=== PATIENT | male | born 1975 | race Caucasian/White ===

== ENCOUNTER 2021-02-27 14:48 | Inpatient (IN) | payer SELFPAY ==
[2021-02-27 15:44] VITALS: BMI 23.3
[2021-02-27 22:00] VITALS: RESP 18
[2021-02-28] MEDS: acetaminophen 325 mg Tablet 650 MG PO ×2 (05:25→15:11)
[2021-02-28 06:00] VITALS: BP 142/97; PULSE 81; RESP 18; O2SAT 96
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
--- NOTE | 2021-02-28 12:23 | NPU.GN ---
[facility] Group Topic:Positive Thinking / Positive Affirmations General Mood of Group: David did attend group and participated. Seemed in a good mood. He was social with others.
[2021-02-28 13:56] VITALS: BP 141/87; PULSE 73; RESP 16; TEMP 36.4; O2SAT 96
[2021-02-28] MEDS: hyDROXYzine 25 mg Capsule 50 MG PO (15:12)
[2021-02-28] MEDS: nicotine 21 mg Patch 1 PATCH TRANSDERMA (15:32)
[2021-02-28 20:35] VITALS: BP 155/106; PULSE 73; RESP 18; TEMP 36.8; O2SAT 97
[2021-02-28] MEDS: trazodone 50 mg Tablet PO (20:36)
[2021-03-01 06:00] VITALS: BP 128/95; PULSE 103; RESP 18; TEMP 36.8; O2SAT 95
--- NOTE | 2021-03-01 10:31 | NPU.GN ---
[facility] Topic: Good Secrets Vs. Bad Secrets Psycho Therapy General Mood of Group: David did attend and participate in group today.
[2021-03-01] MEDS: nicotine 21 mg Patch 1 PATCH TRANSDERMA (12:39)
[2021-03-01 14:00] VITALS: BP 147/95; PULSE 78; RESP 16; TEMP 36.4; O2SAT 98
[2021-03-01] MEDS: lanolin oint 7 gm 1 APPLIC TOPICAL (18:23)
--- NOTE | 2021-03-01 18:44 | W.PM.NPUPNS ---
Subjective NPU Subjective: Interval history: David and I had a extensive conversation about his vision for his future and his addiction and his relationship with his children. He spoke significantly about having knowledge of what the right thing to do is but struggling with his choices and behaviors. We discussed the dangers of addiction and that all he takes is 1 day and 1 bad choice in her life can be changed irreparably forever. He revealed at that time that in this last week or so he may have gotten some charges stemming from his behaviors and is waiting to hear that he has not talked to his family about it. We discussed the fact that we had not supporting him going to his daughter's ceremony tomorrow secondary to wanting him to be able to do what he says is his daughters 1 wish from him and that is to be functional and available to walk her down the aisle. Mental Status Exam MSE Comments: This is a well-nourished, well-developed, white male, with adequate dress, grooming, and eye contact. No abnormal movements. Cooperative with exam in no acute distress. Speech was normal rate and volume. Mood described as good; affect euthymic. Thought process, organized. Thought content: patient denied any suicidal or homicidal ideation, there were no delusions reported or noted, patient denied any auditory or visual hallucinations. Attention, concentration, and memory appear intact but were not formally tested. He is alert and oriented times three. Insight and judgment are limited, but improving, impulse control impaired. Vitals/I&O/Wt Last Vital Signs Temp 98.2 F 03/01/21 21:20 Pulse 88 03/01/21 21:20 Resp 18 03/01/21 21:20 BP 150/102 03/01/21 21:20 Pulse Ox 97 03/01/21 21:20 A&P Assessment and plan (1) ADHD: Status: Acute Additional A&P Information (1) Psychosis: (2) Methamphetamine abuse: Additional A&P Information This is a 45-year-old, white male, with polysubstance abuse, methamphetamine use disorder, severe, cocaine use disorder, severe, rule out bipolar disorder, unspecified, who presents on a 96-hour hold secondary to significant psychosis, likely drug-induced, with history of recent TBI. RECOMMENDATION AND PLAN: 1. Continue current medication. 2. Encourage individual, group, and milieu therapy. 3. Continue q-15 minute checks for safety. 4. Encourage sober living treatment after discharge, at the highest level of care, to which he is willing to commit. Involuntary Hold Information 96 Hour Hold: 96 Hour Involuntary Admission: No Attestations NPU Medical Necessity Statement*: Inpatient hospitalization is medically necessary and the clinically appropriate intervention, at this time. We will monitor medications and make changes as indicated. Patient will be in the hospital for over two midnights. Likely length of stay is 2-4 days. Coding Level of Care Code Acute Extraction Supervisor for Rebekah Fwd Diagnoses ADHD F90.9
[2021-03-01] MEDS: trazodone 50 mg Tablet PO (20:24)
[2021-03-01 21:20] VITALS: BP 150/102; PULSE 88; RESP 18; TEMP 36.8; O2SAT 97
[2021-03-01] MEDS: hyDROXYzine 25 mg Capsule 50 MG PO (23:48)
[2021-03-02 06:00] VITALS: BP 132/91; PULSE 95; RESP 18; TEMP 36.6; O2SAT 96
[2021-03-02] MEDS: acetaminophen 325 mg Tablet 650 MG PO ×2 (09:02→17:14)
[2021-03-02] MEDS: nicotine 21 mg Patch 1 PATCH TRANSDERMA (09:03)
[2021-03-02 14:00] VITALS: BP 132/94; PULSE 69; RESP 18; TEMP 36.2; O2SAT 96
--- NOTE | 2021-03-02 15:39 | W.PM.NPUPNS ---
Subjective NPU Subjective: Interval history: Patient presents today reporting that he is aware of his situation and the fact that he needs to really work on his recovery in his relationships and his choices. We discussed the diagnosis of ADHD and the fact that the likely only stimulant that this health science writer would use with him would be Vyvanse given its reduced abuse potential as a prodrug. But we discussed the risk-benefit alternatives of starting Strattera 40 mg p.o. every morning with meals and he understood and agreed to proceed as is documented in this note. Mental Status Exam MSE Comments: This is a well-nourished, well-developed, white male, with adequate dress, grooming, and eye contact. No abnormal movements. Cooperative with exam in no acute distress. Speech was normal rate and volume. Mood described as good; affect euthymic. Thought process, organized. Thought content: patient denied any suicidal or homicidal ideation, there were no delusions reported or noted, patient denied any auditory or visual hallucinations. Attention, concentration, and memory appear intact but were not formally tested. He is alert and oriented times three. Insight and judgment are limited, but improving, impulse control impaired. Vitals/I&O/Wt Last Vital Signs Temp 97.1 F L 03/02/21 14:00 Pulse 69 03/02/21 14:00 Resp 18 03/02/21 14:00 BP 132/94 03/02/21 14:00 Pulse Ox 96 03/02/21 14:00 A&P Additional A&P Information (1) ADHD: Additional A&P Information (1) Psychosis: (2) Methamphetamine abuse: Additional A&P Information This is a 45-year-old, white male, with polysubstance abuse, methamphetamine use disorder, severe, cocaine use disorder, severe, rule out bipolar disorder, unspecified, who presents on a 96-hour hold secondary to significant psychosis, likely drug-induced, with history of recent TBI. RECOMMENDATION AND PLAN: 1. Continue current medication. Start Strattera 40 mg p.o. every morning with meals in the morning. 2. Encourage individual, group, and milieu therapy. 3. Continue q-15 minute checks for safety. 4. Encourage sober living treatment after discharge, at the highest level of care, to which he is willing to commit. Involuntary Hold Information 96 Hour Hold: 96 Hour Involuntary Admission: No Attestations NPU Medical Necessity Statement*: Inpatient hospitalization is medically necessary and the clinically appropriate intervention, at this time. We will monitor medications and make changes as indicated. Likely length of stay is 1-3 days. Coding Level of Care Code Acute Airline Managerial Supervisor for Rebekah Velez
[2021-03-02] MEDS: nicotine 2 mg Gum BUCCAL (20:39)
[2021-03-02] MEDS: hyDROXYzine 25 mg Capsule 50 MG PO (20:40)
[2021-03-02] MEDS: trazodone 50 mg Tablet PO (20:46)
[2021-03-02 21:14] VITALS: BP 140/91; PULSE 74; RESP 17; TEMP 36.7; O2SAT 95
--- NOTE | 2021-03-03 02:29 | PC.NURSE ---
Patient up at start of shift. Cooperative, clear thought process, interactive with others. Denies AVH or SI/HI. Did c/o mild anxiety and received PRN Vistaril and Trazadone for sleep aid to good effect. Received PRN Nicotine gum. No further complaints. Has been in bed resting with eyes closed. No signs of distress noted.
[2021-03-03 06:00] VITALS: BP 133/85; PULSE 97; RESP 15; TEMP 36.7; O2SAT 97; BMI 23.3
[2021-03-03] MEDS: atomoxetine 40 mg Capsule PO (08:08)
--- NOTE | 2021-03-03 11:54 | W.PM.NPUPNS ---
Subjective NPU Subjective: Interval history: Patient presents today reporting that he has tolerated the Strattera fine and feels like it did help quiet the energy in his mind. He reports that he has not had any side effects of the medication and continues to eat and sleep fine. We discussed elective discharge in the next 48 hours which makes him happy. We reviewed the logistics of how he would get back up to his car which is in the [facility] [place]. Mental Status Exam MSE Comments: This is a well-nourished, well-developed, white male, with adequate dress, grooming, and eye contact. No abnormal movements. Cooperative with exam in no acute distress. Speech was normal rate and volume. Mood described as good; affect euthymic. Thought process, organized. Thought content: patient denied any suicidal or homicidal ideation, there were no delusions reported or noted, patient denied any auditory or visual hallucinations. Attention, concentration, and memory appear intact but were not formally tested. He is alert and oriented times three. Insight and judgment are limited, but improving, impulse control improving. Vitals/I&O/Wt Last Vital Signs Temp 98.1 F 03/03/21 06:00 Pulse 97 03/03/21 06:00 Resp 15 03/03/21 06:00 BP 133/85 03/03/21 06:00 Pulse Ox 97 03/03/21 06:00 Weight last 48 hrs Weight 77.273 kg A&P Additional A&P Information (1) ADHD: Additional A&P Information (1) Psychosis: (2) Methamphetamine abuse: Additional A&P Information This is a 45-year-old, white male, with polysubstance abuse, methamphetamine use disorder, severe, cocaine use disorder, severe, rule out bipolar disorder, unspecified, who presents on a 96-hour hold secondary to significant psychosis, likely drug-induced, with history of recent TBI. RECOMMENDATION AND PLAN: 1. Continue current medication. 2. Encourage individual, group, and milieu therapy. 3. Continue q-15 minute checks for safety. 4. Encourage sober living treatment after discharge, at the highest level of care, to which he is willing to commit. Involuntary Hold Information 96 Hour Hold: 96 Hour Involuntary Admission: No Attestations NPU Medical Necessity Statement*: Inpatient hospitalization is medically necessary and the clinically appropriate intervention, at this time. We will monitor medications and make changes as indicated. Likely length of stay is 1-3 days. Coding Level of Care Code Acute Subway Operator for Rebekah Velez
[2021-03-03] MEDS: nicotine 2 mg Gum BUCCAL ×2 (13:30→20:02)
[2021-03-03 14:00] VITALS: BP 118/88; PULSE 82; RESP 20; TEMP 36.8; O2SAT 98
[2021-03-03] MEDS: trazodone 50 mg Tablet PO (20:03)
--- NOTE | 2021-03-03 20:05 | PC.NURSE ---
pt requested sleep med, pt given trazodone 50mg po for sleep.
[2021-03-03 20:21] VITALS: BP 121/82; PULSE 80; RESP 18; O2SAT 95
--- NOTE | 2021-03-03 22:00 | PC.NURSE ---
pt resting quietly with both eyes closed at this time
[2021-03-04 06:00] VITALS: BP 121/86; PULSE 86; RESP 18; O2SAT 96
[2021-03-04] MEDS: nicotine 21 mg Patch 1 PATCH TRANSDERMA (07:54)
[2021-03-04] MEDS: atomoxetine 40 mg Capsule PO (07:55)
[2021-03-04 09:20] VITALS: BP 121/86; PULSE 86; RESP 18; O2SAT 96
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
--- NOTE | 2021-03-04 12:22 | NPU.GN ---
[facility] Unit Group Topic:Emotions General Mood of Group: Patient come to group on time, dressed appropriately in hospital scrubs. The patient was well groomed with good hygiene. The group discussed emotions and where we feel these emotions in our body. They were able to color coordinate the color to the emotion and color the specific emotion to the body part that they feel these emotions. Everyone shared in the group their specific emotions and where the emotion is felt on their body. There were some new patients in NPU from over the weekend. It was discussed with the group what 96 hour hold and 21 day holds were. We spoke about self admitting. We also spoke about [facility]'s [facility] and the importance of after care. Patients were able to ask questions about [facility] and about [facility]PU.
== END 2021-03-04 14:10 | disposition home or self-care (01) | DRG 885 ==
PROVIDERS: Admitting Provider Psychiatry & Neurology Psychiatry; Visit Provider Psychiatry & Neurology Psychiatry
DX: F29 Unspecified psychosis not due to a substance or known physiological condition (principal); R45.851 Suicidal ideations; F17.210 Nicotine dependence, cigarettes, uncomplicated; F14.90 Cocaine use, unspecified, uncomplicated; F15.10 Other stimulant abuse, uncomplicated; F11.90 Opioid use, unspecified, uncomplicated; Z87.820 Personal history of traumatic brain injury; F90.9 Attention-deficit hyperactivity disorder, unspecified type; Z81.1 Family history of alcohol abuse and dependence
CPT/HCPCS: 97150; 97165